=== PATIENT | male | born 1980 | race Caucasian/White ===

== ENCOUNTER 2016-10-24 08:33 | Emergency (ER) | payer BC ==
[2016-10-24] MEDS ORDERED: Acetaminophen/HYDROcodone 325-5 MG Tab PO ONE (09:03)
[2016-10-24] MEDS ORDERED: methylPREDNISolone Sodium Succinate 125 MG/2 ML SDV IM ONE (09:03)
--- NOTE | 2016-10-24 09:07 | EDM.PDOC ---
ED HPI GENERAL MEDICAL PROBLEM - General Stated Complaint: BACK PAIN Time Seen by Provider: 10/24/16 09:05 Source of Information: Reports: Patient - History of Present Illness INITIAL COMMENTS - FREE TEXT/NARRATIVE: HISTORY AND PHYSICAL: History of present illness: Patient with history of low back pain and annular disc bulge no central canal narrowing last MRI October 04, he has been referred to neurosurgery [facility] This morning he was getting out of bed developed 7 out of 10 low back pain nonradiating no radiculopathy no footdrop or saddle anesthesia or bowel or urine symptoms Pain is worsened by movement better at rest No fever nausea vomiting chills sweats no chest pain shortness breath headache dizziness palpitation no bowel or urine symptoms Review of systems: As per history of present illness and below otherwise all systems reviewed and negative. Past medical history: As per history of present illness and as reviewed below otherwise noncontributory. Surgical history: As per history of present illness and as reviewed below otherwise noncontributory. Social history: No reported history of drug or alcohol abuse. Family history: As per history of present illness and as reviewed below otherwise noncontributory. Physical exam: HEENT: Atraumatic, normocephalic, pupils reactive, negative for conjunctival pallor or scleral icterus, mucous membranes moist, throat clear, neck supple, nontender, trachea midline. Lungs: Clear to auscultation, breath sounds equal bilaterally, chest nontender. Heart: S1S2, regular, negative for clicks, rubs, or JVD. Abdomen: Soft, nondistended, nontender. Negative for masses or hepatosplenomegaly. Negative for costovertebral tenderness. Pelvis: Stable nontender. Genitourinary: Deferred. Rectal: Deferred. Extremities: Atraumatic, negative for cords or calf pain. Neurovascular unremarkable. Neuro: Awake, alert, oriented. Cranial nerves II through XII unremarkable. Cerebellum unremarkable. Motor and sensory unremarkable throughout. Exam nonfocal. Diagnostics: []MRI on file from October 04 Patient refused lumbar x-ray Therapeutics: []Solu-Medrol 125 mg IM Ben[place] 5 per 325 by mouth now and prescription 30 tablets 1-2 tabs by mouth every 6 when necessary #30 no refill Follow-up with neurosurgeon as scheduled 3 weeks out Follow-up with primary care as needed Impression: []L5 disc protrusion posteriorly Definitive disposition and diagnosis as appropriate pending reevaluation and review of above. Bilateral Lower Back Pain Score (Numeric/FACES): 8 - Related Data Allergies Allergy/AdvReac Type Severity Reaction Status Date / Time No Known Allergies Allergy Verified 10/24/16 08:55 Home Meds: Home Meds . [No Known Home Meds] 10/27/15 [History] Past Medical History - Past Health History Medical/Surgical History: Denies Medical/Surgical History HEENT History: Reports: Other (See Below) Other HEENT History: broken teeth Genitourinary History: Reports: None Musculoskeletal History: Reports: None Psychiatric History: Reports: None Endocrine/Metabolic History: Reports: None Hematologic History: Reports: None Immunologic History: Reports: None - Infectious Disease History Infectious Disease History: Reports: None - Past Surgical History Musculoskeletal Surgical History: Reports: Arthroscopic Knee, Shoulder Surgery Social & Family History - Family History Family Medical History: Noncontributory HEENT: Reports: None Cardiac: Reports: None Respiratory: Reports: None GI: Reports: None - Tobacco Use Smoking Status *Q: Never Smoker Years of Tobacco use: 15 Packs/Tins Daily: 0.5 Used Tobacco, but Quit: No Second Hand Smoke Exposure: No - Alcohol Use Days Per Week of Alcohol Use: 0 - Recreational Drug Use Recreational Drug Use: No ED ROS GENERAL - Review of Systems Review Of Systems: ROS reveals no pertinent complaints other than HPI. ED EXAM, GENERAL - Physical Exam Exam: See Below Course - Vital Signs Last Recorded V/S: Last Vital Signs Temp 36.6 C 10/24/16 08:56 Pulse 100 10/24/16 08:56 Resp 20 10/24/16 08:56 BP 153/71 H 10/24/16 08:56 Pulse Ox 98 10/24/16 08:56 - Orders/Labs/Meds Meds: Medications Discontinued Medications Generic Name Dose Route Start Last Admin Trade Name Freq PRN Reason Stop Dose Admin Hydrocodone Bitart/Acetaminophen 1 tab 10/24/16 09:03 10/24/16 09:12 Benld 325-5 Mg PO 10/24/16 09:04 1 tab ONETIME ONE Administration Methylprednisolone Sodium Succinate 125 mg 10/24/16 09:03 10/24/16 09:12 Solu-Medrol IM 10/24/16 09:04 125 mg ONETIME ONE Administration Departure - Departure Time of Disposition: 09:22 Disposition: Home, Self-Care 01 Condition: Good Clinical Impression: Bulging disc - Discharge Information Additional Instructions: Medication as prescribed As you are now off work for the next couple of weeks no work note provided Follow-up with neurosurgeon as scheduled Follow-up with primary care in the interim as needed Avoid heavy lifting or strenuous activity Return if symptoms persist or worsen The following information is given to patients seen in the emergency department who are being discharged to home. This information is to outline your options for follow-up care. We provide all patients seen in our emergency department with a follow-up referral. The need for follow-up, as well as the timing and circumstances, are variable depending upon the specifics of your emergency department visit. If you don't have a primary care physician on staff, we will provide you with a referral. We always advise you to contact your personal physician following an emergency department visit to inform them of the circumstance of the visit and for follow-up with them and/or the need for any referrals to a consulting specialist. The emergency department will also refer you to a specialist when appropriate. This referral assures that you have the opportunity for follow-up care with a specialist. All of these measure are taken in an effort to provide you with optimal care, which includes your follow-up. Under all circumstances we always encourage you to contact your private physician who remains a resource for coordinating your care. When calling for follow-up care, please make the office aware that this follow-up is from your recent emergency room visit. If for any reason you are refused follow-up, please contact the [facility] emergency department at and asked to speak to the emergency department charge nurse.
[2016-10-24 11:03] VITALS: BP 144/76
== END 2016-10-24 09:50 | disposition home or self-care (01) ==
LOC: MW.ED 08:33
DX: M51.26 Other intervertebral disc displacement, lumbar region (principal); Z98.890 Other specified postprocedural states
CPT/HCPCS: 96372; 99283; A9270; J2930

== ENCOUNTER 2016-12-09 09:33 | Emergency (ER) | payer BC ==
[2016-12-09] MEDS ORDERED: Acetaminophen/oxyCODONE 325-7.5 MG Tab PO ONE (10:29)
[2016-12-09] MEDS ORDERED: methylPREDNISolone Sodium Succinate 125 MG/2 ML SDV IM ONE (10:29)
--- NOTE | 2016-12-09 10:35 | EDM.PDOC ---
ED HPI GENERAL MEDICAL PROBLEM - General Chief Complaint: Back Pain or Injury Stated Complaint: BACK PAIN Time Seen by Provider: 12/09/16 10:14 - History of Present Illness INITIAL COMMENTS - FREE TEXT/NARRATIVE: HISTORY AND PHYSICAL: History of present illness: The patient is a 36-year-old male with a known history of back pain and disc disease that has been ongoing since May and who has been in our emergency department October 24 and has followed up in the clinic. According to the patient he has not had any new injuries or problems but has had this consistent pain which does not seem to improve despite interventions. He saw in our family practice clinic and was referred to [place] [facility] where he has gone twice. He says he was the beginning of October and had "magic shots" in his back or release that's what he was told they would be but he did not feel like he got any relief with them. Prior to that he had had an MRI of the lumbar spine on October 04 which I have reviewed which revealed several levels of disc disease the most noteworthy being at L5-S1 where there is posterior disc protrusion contacting the thecal sac. There was moderate bilateral foraminal narrowing at that time. He was seen in the emergency department on October 24 and was treated with Solu-Medrol and [place] and says that the steroids did not help much. He then followed up in [place] twice and has not been able to get back into the family practice clinic for reevaluation. He does have a scheduled appointment here at our pain clinic on December 24 at 9 AM but he says that he cannot make it the 2 weeks due to the discomfort. He has had no new symptoms of bowel or bladder disturbances numbness tingling or weakness in his legs but only the persistent pain which radiates more down his right leg which is the same in character location and intensity that he has had for months. He says he currently has no medications and only got a few Percocet from the neurosurgeon after his steroid injections. Patient is here because he feels frustrated and he does not know how to manage his pain until he can see the pain doctor Review of systems: As per history of present illness and below otherwise all systems reviewed and negative. Past medical history: As per history of present illness and as reviewed below otherwise noncontributory. Surgical history: As per history of present illness and as reviewed below otherwise noncontributory. Social history: No reported history of drug or alcohol abuse. Family history: As per history of present illness and as reviewed below otherwise noncontributory. Physical exam: General: Well-developed well-nourished man who is nontoxic and clearly and easily in the ED. He moves with discomfort but no distress. HEENT: Atraumatic, normocephalic, negative for conjunctival pallor or scleral icterus, mucous membranes moist, throat clear, neck supple, nontender, trachea midline. Lungs: Clear to auscultation, breath sounds equal bilaterally, chest nontender. Heart: S1S2, regular rate and rhythm Abdomen: Soft, nondistended, nontender. NABS Negative for costovertebral tenderness. Pelvis: Stable nontender. Genitourinary: Deferred. Rectal: Deferred. Extremities: Atraumatic, negative for cords or calf pain. Neurovascular unremarkable. Neuro: Awake, alert, oriented. Cranial nerves II through XII unremarkable. Cerebellum unremarkable. Motor and sensory unremarkable throughout. Exam nonfocal.There is a plantar flexion is intact 5/5 inclusive of the great toe and patellar reflexes are +2/4 bilaterally back: There are no midline step-offs tenderness to passive the thoracic or lumbar spine and I'm unable to reproduce the pain on palpation at the lumbar spine Diagnostics: None MRI of October 14 was reviewed Therapeutics: Solu-Medrol Percocet I have been able to obtain an appointment with in his clinic this , December 12 at 2 PM. The patient also has a scheduled appointment with our pain doctor on December 24 at 9 AM. I will give the patient a burst of steroids as well as Percocet for home and have advised him to return to the ED if symptoms change or evolve as we discussed. He feels a bit relieved to get follow-up Impression: Lumbar back pain/disc disease acute on chronic stable Definitive disposition and diagnosis as appropriate pending reevaluation and review of above. Lower back Pain Score (Numeric/FACES): 8 - Related Data Allergies Allergy/AdvReac Type Severity Reaction Status Date / Time No Known Allergies Allergy Verified 10/24/16 08:55 Home Meds: Home Meds . [No Known Home Meds] 10/27/15 [History] Past Medical History - Past Health History Medical/Surgical History: Denies Medical/Surgical History HEENT History: Reports: Other (See Below) Other HEENT History: broken teeth Genitourinary History: Reports: None Musculoskeletal History: Reports: None Psychiatric History: Reports: None Endocrine/Metabolic History: Reports: None Hematologic History: Reports: None Immunologic History: Reports: None - Infectious Disease History Infectious Disease History: Reports: None - Past Surgical History Musculoskeletal Surgical History: Reports: Arthroscopic Knee, Shoulder Surgery Social & Family History - Family History Family Medical History: Noncontributory HEENT: Reports: None Cardiac: Reports: None Respiratory: Reports: None GI: Reports: None - Tobacco Use Smoking Status *Q: Never Smoker Years of Tobacco use: 15 Packs/Tins Daily: 0.5 Used Tobacco, but Quit: No Second Hand Smoke Exposure: No - Caffeine Use Caffeine Use: Reports: Coffee Other Caffeine Use: 3 cups per day - Alcohol Use Days Per Week of Alcohol Use: 0 - Recreational Drug Use Recreational Drug Use: No ED ROS GENERAL - Review of Systems Review Of Systems: ROS reveals no pertinent complaints other than HPI. ED EXAM, GENERAL - Physical Exam Exam: See Below (See dictation) Course - Vital Signs Last Recorded V/S: Last Vital Signs Temp 37.0 C 12/09/16 09:47 Pulse 97 12/09/16 09:47 Resp 16 12/09/16 09:47 BP 161/89 H 12/09/16 09:47 Pulse Ox 98 12/09/16 09:47 - Orders/Labs/Meds Orders: Active Orders 24 hr Category Date Time Status Acetaminophen/oxyCODONE [Percocet 325-7.5 MG] Med 12/09/16 10:29 Once 1 tab PO ONETIME ONE methylPREDNISolone Sod Succ [Solu-MEDROL] Med 12/09/16 10:29 Once 125 mg IM ONETIME ONE Departure - Departure Time of Disposition: 10:35 Disposition: Home, Self-Care 01 Condition: Good Clinical Impression: Lumbar disc disease Back pain Qualifiers: Back pain location: low back pain Chronicity: chronic Back pain laterality: right Sciatica presence: without sciatica Qualified Code(s): M54.5 - Low back pain; G89.29 - Other chronic pain - Discharge Information Referrals: PCP,None [Primary Care Provider] - Additional Instructions: The following information is given to patients seen in the emergency department who are being discharged to home. This information is to outline your options for follow-up care. We provide all patients seen in our emergency department with a follow-up referral. The need for follow-up, as well as the timing and circumstances, are variable depending upon the specifics of your emergency department visit. If you don't have a primary care physician on staff, we will provide you with a referral. We always advise you to contact your personal physician following an emergency department visit to inform them of the circumstance of the visit and for follow-up with them and/or the need for any referrals to a consulting specialist. The emergency department will also refer you to a specialist when appropriate. This referral assures that you have the opportunity for followup care with a specialist. All of these measure are taken in an effort to provide you with optimal care, which includes your followup. Under all circumstances we always encourage you to contact your private physician who remains a resource for coordinating your care. When calling for followup care, please make the office aware that this follow-up is from your recent emergency room visit. If for any reason you are refused follow-up, please contact the [facility] emergency department at and ask to speak to the emergency department charge nurse. [facility] Primary care- [place] [address] Please take prednisone and Percocet as prescribed and please keep your appointment this in the family practice clinic with Dr. Santiago at 2 PM. Please also keep your appointment with the pain physician on December 24 at 9 AM. Return to ER as needed and as we discussed - My Orders Last 24 Hours: My Active Orders 12/09/16 10:29 Acetaminophen/oxyCODONE [Percocet 325-7.5 MG] 1 tab PO ONETIME ONE methylPREDNISolone Sod Succ [Solu-MEDROL] 125 mg IM ONETIME ONE - Assessment/Plan Last 24 Hours: My Active Orders 12/09/16 10:29 Acetaminophen/oxyCODONE [Percocet 325-7.5 MG] 1 tab PO ONETIME ONE methylPREDNISolone Sod Succ [Solu-MEDROL] 125 mg IM ONETIME ONE
[2016-12-09 11:20] VITALS: BP 138/87
== END 2016-12-09 11:16 | disposition home or self-care (01) ==
LOC: MW.ED 09:33
DX: M51.9 Unspecified thoracic, thoracolumbar and lumbosacral intervertebral disc disorder (principal)
CPT/HCPCS: 96372; 99283; J2930

== ENCOUNTER 2017-01-02 12:41 | Day surgery (SDC) | payer BC ==
[~2017-01-02 12:41] MED LIST: Betamethasone Acetate/Betamethasone Sod Phosphate 30 MG/5 ML MDV ONE; Iopamidol 408 MG/ML 50 ML SDV ONE; Lidocaine 2% 5 ML SDV ONE; Ropivacaine 0.5% 5 MG/ML 30 ML SDV ONE
--- NOTE | 2017-01-02 18:37 | OR ---
SURGEON: Paz Burris D.O. DATE OF PROCEDURE: 01/02/2017 OR STAFF PRESENT: 1. Noah Franco RN. 2. Álvaro Wyatt RN. WOUND CLASSIFICATION: I. PREOPERATIVE DIAGNOSES: 1. Chronic low back pain. 2. Lumbar degenerative disk disease. 3. Lumbar spondylosis. POSTOPERATIVE DIAGNOSES: 1. Chronic low back pain. 2. Lumbar degenerative disk disease. 3. Lumbar spondylosis. PROCEDURES PERFORMED: 1. Caudal epidural steroid injection. 2. Fluoroscopic guidance for needle placement. 3. Local with oral Valium for sedation. SCREENING QUESTIONS: The patient answered "no" to all of the following questions: 1. Are you allergic to latex? 2. Do you have a bleeding disorder? 3. Do you have any current local or systemic infections? 4. Are you taking any anti-inflammatories or blood thinners? 5. Do you have any joint replacements, heart valve replacements, or a pacemaker? DESCRIPTION OF PROCEDURE: The patient had the procedure thoroughly explained including all possible risks, benefits and alternatives. Consent was signed in my clinic indicating understanding and willingness to proceed. The patient presented to [facility] and was escorted to the dressing room to disrobe and change into a hospital gown. Preoperative vital signs were taken and stable. The patient reported that Valium was taken prior to the procedure. The patient was brought back to the procedure room and placed in the prone position on the procedure room table. A pillow was placed under the hips in order to flatten the lumbar lordosis. The back was prepped with ChloraPrep and sterilely draped. All personnel in the operating room were dressed in appropriate attire including surgical scrubs, head and shoe covers. This was to ensure sterility while in the treatment room. During the time fluoroscopy was in use, all personnel in the operating room wore lead edwards with thyroid collars. Sterile technique was used throughout the procedure. The patient was awake and conversant throughout the procedure. There was no evidence of infection at the site of needle insertion. Skeletal landmarks were identified under fluoroscopy for the caudal epidural. Skin was anesthetized with 2% lidocaine with a sterile 27-gauge 1.5 inch needle. Then a 20-gauge Tuohy epidural needle was placed in the epidural space with loss of resistance technique under fluoroscopic guidance. No heme, cerebrospinal fluid, or paresthesias were noted. Isovue-200 contrast dye was injected in 0.2 cubic centimeter increments and seen to outline the epidural space in both AP and lateral views. There was no intravascular flow pattern observed under live fluoroscopy. Then 12 milligrams of Celestone was slowly injected after negative aspiration. The patient tolerated the procedure well. Vital signs were stable during and after the procedure. The staff escorted the patient to the recovery area and the patient was released in stable condition after a brief stay in the recovery room monitored by the nurse. The patient was given both oral and written discharge and follow up instructions with recommendation to follow up given for 2-3 weeks. The patient voiced understanding including understanding of those signs and symptoms that would require emergency care. The patient knows how to contact the office if there are any additional problems or questions in the meantime. PREOPERATIVE PAIN: 7/10. POSTOPERATIVE PAIN: 5/10. FOLLOWUP: Follow up in the Pain Clinic in 3 weeks. NELY / SOUTH /[id number] REYES
== END 2017-01-02 14:20 | disposition home or self-care (01) ==
LOC: MW.SDS 12:41
PROVIDERS: ATTEND Anesthesiology
DX: G89.29 Other chronic pain (principal); M51.16 Intervertebral disc disorders with radiculopathy, lumbar region; M47.26 Other spondylosis with radiculopathy, lumbar region; M75.41 Impingement syndrome of right shoulder; I10 Essential (primary) hypertension; Z79.1 Long term (current) use of non-steroidal anti-inflammatories (NSAID); Z79.899 Other long term (current) drug therapy; Z98.890 Other specified postprocedural states
CPT/HCPCS: 62323; J0702; J2795; Q9966

== ENCOUNTER 2017-05-08 09:17 | Emergency (ER) | payer BC ==
[2017-05-08] MEDS ORDERED: Albuterol/Ipratropium 3.0-0.5 MG/3 ML Neb Soln NEB ONE (09:52)
--- NOTE | 2017-05-08 10:11 | EDM.PDOC ---
ED HPI GENERAL MEDICAL PROBLEM - General Chief Complaint: Respiratory Problem Stated Complaint: COUGHING Time Seen by Provider: 05/08/17 09:47 Source of Information: Reports: Patient History Limitations: Reports: No Limitations - History of Present Illness INITIAL COMMENTS - FREE TEXT/NARRATIVE: History of present illness: []Patient has been sick for over a month of cough and fevers. He took a few days off and returned to work 4 days ago and now feels worse. He complains of sore throat, shortness of breath and constant coughing cannot sleep. Patient also has chronic back pain that he gets steroid injections and has not been able to get his injection due to this illness. Review of systems: As per history of present illness and below otherwise all systems reviewed and negative. Past medical history: As per history of present illness and as reviewed below otherwise noncontributory. Surgical history: As per history of present illness and as reviewed below otherwise noncontributory. Social history: No reported history of drug or alcohol abuse. Family history: As per history of present illness and as reviewed below otherwise noncontributory. Physical exam: General: Well developed, well nourished in NAD HEENT: Atraumatic, normocephalic, pupils reactive, negative for conjunctival pallor or scleral icterus, mucous membranes moist, throat clear, neck supple, nontender, trachea midline. Lungs: Clear to auscultation, breath sounds equal bilaterally, chest nontender. Heart: S1S2, regular, negative for clicks, rubs, or JVD. Abdomen: Soft, nondistended, nontender. Negative for masses or hepatosplenomegaly. Negative for costovertebral tenderness. Pelvis: Stable nontender. Genitourinary: Deferred. Rectal: Deferred. Extremities: Atraumatic, negative for cords or calf pain. Neurovascular unremarkable. Neuro: Awake, alert, oriented. Cranial nerves II through XII unremarkable. Cerebellum unremarkable. Motor and sensory unremarkable throughout. Exam nonfocal. Diagnostics: []Chest x-ray negative influenza negative Therapeutics: []patient given albuterol with improvement of cough Impression: []URI Plan: []Zithromax, albuterol, follow-up with PMD Definitive disposition and diagnosis as appropriate pending reevaluation and review of above. Chest Pain Score (Numeric/FACES): 7 - Related Data Allergies Allergy/AdvReac Type Severity Reaction Status Date / Time No Known Allergies Allergy Verified 10/24/16 08:55 Home Meds: Home Meds Albuterol Sulfate [Ventolin Hfa] 8 gm IH Q4HR PRN #1 hfa.[email or web address] 05/08/17 [Rx] Azithromycin [IJD: Azithromycin] 250 mg PO DAILY #6 tab 05/08/17 [Rx] Past Medical History - Past Health History Medical/Surgical History: Denies Medical/Surgical History HEENT History: Reports: Other (See Below) Other HEENT History: broken teeth Respiratory History: Reports: SOB Genitourinary History: Reports: None Musculoskeletal History: Reports: None Psychiatric History: Reports: None Endocrine/Metabolic History: Reports: None Hematologic History: Reports: None Immunologic History: Reports: None - Infectious Disease History Infectious Disease History: Reports: None - Past Surgical History Musculoskeletal Surgical History: Reports: Arthroscopic Knee, Shoulder Surgery Social & Family History - Family History Family Medical History: Noncontributory HEENT: Reports: None Cardiac: Reports: None Respiratory: Reports: None GI: Reports: None - Tobacco Use Smoking Status *Q: Never Smoker Years of Tobacco use: 15 Packs/Tins Daily: 0.5 Used Tobacco, but Quit: No Second Hand Smoke Exposure: No - Caffeine Use Caffeine Use: Reports: Coffee Other Caffeine Use: 3 cups per day - Alcohol Use Days Per Week of Alcohol Use: 0 - Recreational Drug Use Recreational Drug Use: No ED ROS GENERAL - Review of Systems Review Of Systems: See Below (See history of present illness) ED EXAM, GENERAL - Physical Exam Exam: See Below (See history of present illness) Course - Vital Signs Last Recorded V/S: Last Vital Signs Temp 98.7 F 05/08/17 11:10 Pulse 96 05/08/17 11:10 Resp 20 05/08/17 11:10 BP 138/93 H 05/08/17 11:10 Pulse Ox 97 05/08/17 11:10 - Orders/Labs/Meds Orders: Active Orders 24 hr Category Date Time Status RT Aerosol Therapy [RC] ASDIRECTED Care 05/08/17 09:54 Active CULTURE STREP A CONFIRMATION [RM] Stat Lab 05/08/17 10:03 Results STREP SCRN A RAPID W CULT CONF [RM] Stat Lab 05/08/17 10:03 Results Labs: Laboratory Tests 05/08/17 05/08/17 Range/Units 10:07 10:07 WBC 10.00 (4.0-11.0) K/uL RBC 5.75 (4.50-5.90) M/uL Hgb 17.3 H (13.0-17.0) g/dL Hct 51.2 H (38.0-50.0) % MCV 89.0 (80.0-98.0) fL MCH 30.1 (27.0-32.0) pg MCHC 33.8 (31.0-37.0) g/dL RDW Std Deviation 45.7 (28.0-62.0) fl RDW Coeff of Jazmyn 14 (11.0-15.0) % Plt Count 387 (150-400) K/uL MPV 8.70 (7.40-12.00) fL Neut % (Auto) 69.6 (48.0-80.0) % Lymph % (Auto) 15.8 L (16.0-40.0) % [place] % (Auto) 10.7 (0.0-15.0) % Eos % (Auto) 3.4 (0.0-7.0) % Baso % (Auto) 0.5 (0.0-1.5) % Neut # (Auto) 7.0 H (1.4-5.7) K/uL Lymph # (Auto) 1.6 (0.6-2.4) K/uL [place] # (Auto) 1.1 H (0.0-0.8) K/uL Eos # (Auto) 0.3 (0.0-0.7) K/uL Baso # (Auto) 0.1 (0.0-0.1) K/uL Nucleated RBC % 0.0 /100WBC Nucleated RBCs # 0 K/uL Sodium 134 L (136-146) mmol/L Potassium 4.1 (3.5-5.1) mmol/L Chloride 103 (98-110) mmol/L Carbon Dioxide 23 (21-31) mmol/L BUN 9 (6.0-23.0) mg/dL Creatinine 1.1 (0.6-1.5) mg/dL Est Cr Clr Drug Dosing TNP Estimated GFR (MDRD) > 60.0 ml/min Glucose 82 (60-110) mg/dL Calcium 9.5 (8.8-10.8) mg/dL Total Bilirubin 0.5 (0.1-1.5) mg/dL AST 50 H (5-40) IU/L ALT 48 (8-54) IU/L Alkaline Phosphatase 57 (40-150) Total Protein 7.4 (6.0-8.0) g/dL Albumin 4.3 (3.5-5.0) g/dL Globulin 3.1 (2.0-3.5) g/dL Albumin/Globulin Ratio 1.4 (1.3-2.8) Meds: Medications Discontinued Medications Generic Name Dose Route Start Last Admin Trade Name Freq PRN Reason Stop Dose Admin Albuterol/Ipratropium 3 ml 05/08/17 09:52 05/08/17 10:04 Duoneb 3.0-0.5 Mg/3 Ml NEB 05/08/17 09:53 3 ml ONETIME ONE Administration Departure - Departure Time of Disposition: 11:00 Disposition: Home, Self-Care 01 Condition: Good Clinical Impression: Bronchitis - Discharge Information Prescriptions: Albuterol Sulfate [Ventolin Hfa] 8 gm IH Q4HR PRN #1 hfa.aer.ad PRN Reason: Shortness Of Breath Azithromycin [IJD: Azithromycin] 250 mg PO DAILY #6 tab Instructions: Acute Bronchitis, [id number] Referrals: PCP,None [Primary Care Provider] - Forms: ED Department Discharge Additional Instructions: The following information is given to patients seen in the emergency department who are being discharged to home. This information is to outline your options for follow-up care. We provide all patients seen in our emergency department with a follow-up referral. The need for follow-up, as well as the timing and circumstances, are variable depending upon the specifics of your emergency department visit. If you don't have a primary care physician on staff, we will provide you with a referral. We always advise you to contact your personal physician following an emergency department visit to inform them of the circumstance of the visit and for follow-up with them and/or the need for any referrals to a consulting specialist. The emergency department will also refer you to a specialist when appropriate. This referral assures that you have the opportunity for follow-up care with a specialist. All of these measure are taken in an effort to provide you with optimal care, which includes your follow-up. Under all circumstances we always encourage you to contact your private physician who remains a resource for coordinating your care. When calling for follow-up care, please make the office aware that this follow-up is from your recent emergency room visit. If for any reason you are refused follow-up, please contact the [facility] Emergency Department at and asked to speak to the emergency department charge nurse. Albuterol Zithromax as directed increase fluids follow-up with PMD as needed [facility] [address] [place] [id number] - My Orders Last 24 Hours: My Active Orders 05/08/17 09:54 RT Aerosol Therapy [RC] ASDIRECTED 05/08/17 10:03 CULTURE STREP A CONFIRMATION [RM] Stat STREP SCRN A RAPID W CULT CONF [RM] Stat - Assessment/Plan Last 24 Hours: My Active Orders 05/08/17 09:54 RT Aerosol Therapy [RC] ASDIRECTED 05/08/17 10:03 CULTURE STREP A CONFIRMATION [RM] Stat STREP SCRN A RAPID W CULT CONF [RM] Stat
--- NOTE | 2017-05-08 10:37 | CR ---
EXAMINATION: Two-view chest (PA and Lateral views). HISTORY: Shortness of breath. FINDINGS: The trachea is midline. The cardiomediastinal silhouette is within normal limits. No pulmonary infilt rates, effusions or pneumothorax. Osseous structures appear unremarkable. IMPRESSION: No acute cardiopulmonary process.
[2017-05-08 10:56] LABS: CHLORIDE,CL 103 mmol/L (98-110); SODIUM,NA 134 mmol/L (136-146)
[2017-05-08 11:13] VITALS: BP 138/93
== END 2017-05-08 11:10 | disposition home or self-care (01) ==
LOC: MW.ED 09:17
DX: J06.9 Acute upper respiratory infection, unspecified (principal); J40 Bronchitis, not specified as acute or chronic; Z79.2 Long term (current) use of antibiotics; Z72.0 Tobacco use
CPT/HCPCS: 36415; 71046; 71046-26; 80053; 85025; 87081; 87804; 87880; 94640; 99283; 99284-25